=== PATIENT | female | born 1980 | race Caucasian/White ===

== ENCOUNTER 2019-06-27 06:12 | Inpatient (IN) | payer MEDICAID ==
[~2019-06-27] VITALS: Ht 162.6 cm; Wt 70.9 kg
[2019-07-01 07:50] VITALS: BP 153/85
== END 2019-07-01 23:30 | disposition home or self-care (01) | DRG 540 ==
LOC: LDIP 06:12 → 2NW 10:44
PROVIDERS: ADMIT Obstetrics & Gynecology; ATTEND Obstetrics & Gynecology
PROC: 10D00Z1 Extraction of Products of Conception, Low, Open Approach (ICD-10-PCS; principal; 2019-06-27)
DX: O44.03 Complete placenta previa NOS or without hemorrhage, third trimester (principal); O72.1 Other immediate postpartum hemorrhage; Z37.0 Single live birth; Z3A.37 37 weeks gestation of pregnancy; Z98.82 Breast implant status
CPT/HCPCS: 36415; 82803; 85025; 86850; 86900; 86923; 88307; G0378; J0690; J1170; J1885; J2175; J2405; J3010; J2210; J2590; J2765; J7120

== ENCOUNTER 2020-12-15 17:37 | Outpatient (CLI) | payer MEDICAID ==
[~2020-12-15] VITALS: Ht 162.6 cm; Wt 72.7 kg
[~2020-12-15 17:37] MED LIST: IBUP-1222 PO; OXYC1TAB14 PO; SENN-52 PO
== END 2020-12-15 19:43 | disposition home or self-care (01) ==
LOC: LDOP 17:37
PROVIDERS: ATTEND Obstetrics & Gynecology
DX: O26.893 Other specified pregnancy related conditions, third trimester (principal); Z3A.37 37 weeks gestation of pregnancy
CPT/HCPCS: 59025

== ENCOUNTER 2020-12-23 15:36 | Outpatient (CLI) | payer MEDICAID | END 2020-12-23 23:59 | disposition home or self-care (01) | LOC: STAR 15:36 | DX: Z02.9 Encounter for administrative examinations, unspecified (principal) ==

== ENCOUNTER 2020-12-28 05:49 | Inpatient (IN) | payer MEDICAID ==
[2020-12-28] MEDS ORDERED: LACTATED RINGERS 1,000 ML IVBOLUS ONE (06:00)
[2020-12-28] MEDS ORDERED: LACTATED RINGERS 1,000 ML IV SCH ×2 (06:00→08:00)
[2020-12-28] MEDS ORDERED: METOCLOPRAMIDE 5 MG/ML, 2ML IV ONE (06:00)
[2020-12-28] MEDS ORDERED: ONDANSETRON 2MG/ML, 2ML IVPush ONE (06:00)
[2020-12-28] MEDS ORDERED: NEWBORN KIT ONE (06:11)
[2020-12-28] MEDS ORDERED: METOCLOPRAMIDE 5 MG/ML, 2ML ONE (06:11)
[2020-12-28] MEDS ORDERED: SODIUM CITRATE/CITRIC ACID 15 ML UDC ONE (06:12)
[2020-12-28 06:15] LABS: BASOPHILS % (AUTO) 1 % (0-1); EOSINOPHILS % (AUTO) 0 % (1-7); LYMPHOCYTES % (AUTO) 17 % (22-44); MEAN CORPUSCULAR HEMOGLOBIN 32.7 pg (27.0-34.8); MEAN CORPUSCULAR HGB CONC 34.4 g/dL (32.4-35.8); MEAN PLATELET VOLUME 8.6 fL (7.4-10.4); MONOCYTES % (AUTO) 5 % (2-9); NEUTROPHILS % (AUTO) 77 % (42-75); PLATELET COUNT 231 x10^3/uL (130-400); RED BLOOD COUNT 3.77 x10^6/uL (3.82-5.3)
[2020-12-28 06:17] LABS: MD NO
[2020-12-28] MEDS ORDERED: ONDANSETRON 2MG/ML, 2ML ONE ×2 (07:14→07:29)
[2020-12-28] MEDS ORDERED: morphine SULFATE/PF 0.5 MG/ML, 10ML ONE (07:18)
[2020-12-28] MEDS ORDERED: WATER-INJECTION,STERILE 10 ML IV ONE (07:29)
[2020-12-28] MEDS ORDERED: OXYTOCIN 10 UNITS/ML, 1ML ONE (07:29)
[2020-12-28] MEDS ORDERED: CEFAZOLIN 1,000 MG ONE (07:29)
[2020-12-28] MEDS ORDERED: PHENYLEPHRINE 10 MG/ML ONE (07:29)
[2020-12-28] MEDS ORDERED: EPHEDRINE 50 MG/ML, 1ML ONE (07:29)
[2020-12-28] MEDS ORDERED: EPINEPHRINE 1 MG/ML, 1ML ONE (07:30)
[2020-12-28] MEDS ORDERED: OXYTOCIN 30U/ 0.9% NaCL 500ML 500 ML ONE (07:51)
[2020-12-28] MEDS ORDERED: MISOPROSTOL 200 MCG TABLET ONE (08:00)
[2020-12-28] MEDS ORDERED: MISOPROSTOL 200 MCG TABLET PR PRN (08:00)
[2020-12-28] MEDS ORDERED: ONDANSETRON 2MG/ML, 2ML IV PRN (08:00)
[2020-12-28] MEDS ORDERED: CALCIUM CHLORIDE 10%, 10ML SYR ONE (08:00)
[2020-12-28] MEDS: LACTATED RINGERS 1,000 ML IV SCH ×2 (08:00→18:00)
[2020-12-28] MEDS ORDERED: CARBOPROST TROMETHAMINE 250 MCG/ML, 1ML IM PRN (08:00)
[2020-12-28] MEDS ORDERED: METHYLERGONOVINE 0.2 MG/ML IM PRN (08:00)
[2020-12-28] MEDS ORDERED: MORPHINE SULFATE 4 MG/ML, 1ML IVPush PRN (08:00)
[2020-12-28] MEDS ORDERED: morphine SULFATE 10 MG/ML, 1ML IVPush PRN (08:00)
[2020-12-28] MEDS ORDERED: ACETAMINOPHEN 325 MG TABLET PO PRN (08:00)
[2020-12-28] MEDS ORDERED: MIDAZOLAM 1 MG/ML, 2ML ONE (08:03)
[2020-12-28] MEDS ORDERED: PROPOFOL 10 MG/ML, 20ML ONE (08:28)
[2020-12-28] MEDS ORDERED: MEPERIDINE/PF 50 MG/ML ONE (08:33)
[2020-12-28] MEDS ORDERED: METHYLERGONOVINE 0.2 MG/ML IM ONE (08:40)
[2020-12-28] MEDS: PRENATAL VIT/IRON/FA 1 EACH TABLET PO SCH (09:00)
[2020-12-28 10:50] VITALS: BP 143/88
[2020-12-28] MEDS: OXYTOCIN 30U/ 0.9% NaCL 500ML 500 ML IV SCH ×2 (10:55→18:00)
[2020-12-28 11:30] VITALS: BP 136/82
[2020-12-28] MEDS: OXYcodone/APAP 5/325MG TABLET PO PRN ×3 (12:29→21:25)
[2020-12-28] MEDS: SIMETHICONE 80 MG CHEW TAB PO PRN ×2 (14:30→21:24)
[2020-12-28] MEDS: IBUPROFEN 600 MG TABLET PO PRN ×2 (14:30→21:24)
[2020-12-28 15:15] VITALS: BP 123/78
[2020-12-28 16:28] LABS: BASOPHILS % (AUTO) 1 % (0-1); EOSINOPHILS % (AUTO) 0 % (1-7); LYMPHOCYTES % (AUTO) 10 % (22-44); MEAN CORPUSCULAR HEMOGLOBIN 32.9 pg (27.0-34.8); MEAN CORPUSCULAR HGB CONC 34.2 g/dL (32.4-35.8); MEAN PLATELET VOLUME 8.6 fL (7.4-10.4); MONOCYTES % (AUTO) 5 % (2-9); NEUTROPHILS % (AUTO) 85 % (42-75); PLATELET COUNT 184 x10^3/uL (130-400); RED BLOOD COUNT 3.35 x10^6/uL (3.82-5.3); RED CELL DISTRIBUTION WIDTH 13.4 % (9.6-15.2)
[2020-12-28 16:58] LABS: MD SCAN
[2020-12-28] MEDS: DOCUSATE 100 MG CAPSULE PO PRN (21:24)
[2020-12-28 21:33] VITALS: BP 99/60
[2020-12-29 01:30] VITALS: BP 97/64
[2020-12-29] MEDS: OXYcodone/APAP 5/325MG TABLET PO PRN ×5 (01:40→20:11)
[2020-12-29] MEDS: SIMETHICONE 80 MG CHEW TAB PO PRN ×2 (03:54→10:10)
[2020-12-29] MEDS: IBUPROFEN 600 MG TABLET PO PRN ×4 (03:54→22:40)
[2020-12-29 04:00] VITALS: BP 101/63
[2020-12-29] MEDS: OXYTOCIN 30U/ 0.9% NaCL 500ML 500 ML IV SCH ×2 (04:00→14:00)
[2020-12-29] MEDS: LACTATED RINGERS 1,000 ML IV SCH ×2 (04:00→14:00)
[2020-12-29 08:00] VITALS: BP 92/61
[2020-12-29] MEDS: DOCUSATE 100 MG CAPSULE PO PRN ×2 (10:07→20:11)
[2020-12-29] MEDS: PRENATAL VIT/IRON/FA 1 EACH TABLET PO SCH (10:07)
[2020-12-29 19:50] VITALS: BP 115/75
[2020-12-30] MEDS: LACTATED RINGERS 1,000 ML IV SCH
[2020-12-30] MEDS: OXYTOCIN 30U/ 0.9% NaCL 500ML 500 ML IV SCH
[2020-12-30] MEDS: OXYcodone/APAP 5/325MG TABLET PO PRN ×5 (00:12→17:32)
[2020-12-30] MEDS: IBUPROFEN 600 MG TABLET PO PRN ×3 (05:57→19:39)
[2020-12-30 06:50] VITALS: BP 104/68
[2020-12-30] MEDS: PRENATAL VIT/IRON/FA 1 EACH TABLET PO SCH (09:46)
[2020-12-30] MEDS: DOCUSATE 100 MG CAPSULE PO PRN ×2 (09:46→19:39)
[2020-12-30 19:58] VITALS: BP 122/71
[2020-12-31] MEDS: OXYcodone/APAP 5/325MG TABLET PO PRN ×6 (00:07→21:01)
[2020-12-31] MEDS: IBUPROFEN 600 MG TABLET PO PRN ×4 (02:51→21:01)
[2020-12-31 08:00] VITALS: BP 114/65
[2020-12-31] MEDS: PRENATAL VIT/IRON/FA 1 EACH TABLET PO SCH (08:15)
[2020-12-31] MEDS: DOCUSATE 100 MG CAPSULE PO PRN (08:15)
[2020-12-31] MEDS ORDERED: OXYC1TAB14 PO (13:19)
[2020-12-31] MEDS ORDERED: IBUP-1222 PO (13:22)
== END 2020-12-31 23:00 | disposition home or self-care (01) | DRG 540 ==
LOC: LDIP 05:49 → 2NW 10:28
PROVIDERS: ADMIT Obstetrics & Gynecology; ATTEND Obstetrics & Gynecology
PROC: 10D00Z1 Extraction of Products of Conception, Low, Open Approach (ICD-10-PCS; principal; 2020-12-28)
DX: O34.211 Maternal care for low transverse scar from previous cesarean delivery (principal); O32.1XX0 Maternal care for breech presentation, not applicable or unspecified; O62.2 Other uterine inertia; O77.0 Labor and delivery complicated by meconium in amniotic fluid; O99.824 Streptococcus B carrier state complicating childbirth; Z37.0 Single live birth; Z3A.39 39 weeks gestation of pregnancy; Z88.0 Allergy status to penicillin; Z88.8 Allergy status to other drugs, medicaments and biological substances
CPT/HCPCS: 36415; 85025; 86592; 86850; 86900; 87635; G0378; J0171; J0690; J2175; J2250; J2274; J2405; J2704; J2210; J2370; J2590; J2765